=== PATIENT | male | born 1955 | race Caucasian/White ===

== ENCOUNTER 2023-08-21 09:37 | Outpatient (CLI) | payer OTHER, SELFPAY ==
[2023-08-21 10:06] VITALS: BMI 22.8
--- NOTE | 2023-08-21 10:06 | ECG_ITS ---
[facility] Test Date: 2023-08-21 Pat Name: Arcenio Justice Department: Room: Gender: Male Accuracy Expert: Kevin Puentes : 1955 Requested By: Mango Dubois Order Number: [id number] Linda MD: Barb Suarez M.D. Interpretive Statements NAME OF STUDY: LEXISCAN SESTAMIBI STRESS TEST INDICATION: Chest Pain, PROCEDURE: At the baseline, the EKG revealed normal sinus rhythm with some nonspecific IVCD.. The baseline heart was 684 bpm with a blood pressue of 137/75 mm of Hg Lexiscan was infused over a period of 20 seconds. A total of 0.4 milligrams of Lexiscan was infused. The stress phase was continued for a total of 5 minutes. Heart rate at the end of the stress phase was 102 bpm with a blood pressure 143/68 mm of Hg. The EKG at the peak infusion revealed diffuse nonspecific ST-T changes. Sestamibi was injected 20 seconds after the Lexiscan infusion. Heart rate at the end of the recovery phase was 102 bpm with a blood pressure of 149/74 mm of Hg. the EKG showed some persistent nonspecific ST changes, at 2 minutes into the recovery phase CONCLUSION: 1. Nonspecific EKG changes with the LexiScan infusion 2. No LexiScan induced chest pain or cardiac arrhythmia 3. Normal blood pressure and heart rate response 4. Sestamibi/sestamibi perfusion scan pending; see separate report. Electronically Signed On 08-23-2023 9:45:37 [employer]OTTON PICKING MACHINE OPERATOR by Barb Suarez M.D. [email or web address]
--- NOTE | 2023-08-21 10:06 | NMCV_ITS ---
NM [facility] perf SPECT r/s* [id number] Arcenio Justice Age: 68 Gender: M : 1955 Exam Date: 08/21/2023 10:06 Ordering Phys: Mango Cabrera DO Technologist: TIMA Cordero Exam Location: [facility] Indications: CHEST PAIN STRESS TEST Please see separate stress test report in [facility] for full findings IMAGE PROTOCOL Rest/Stress 1 Lexiscan Day Radiopharmaceutical Dose (mCi) Administration Site Administered by Rest: Tc-99m 10.5 IV TIMA Cordero Sestamibi Stress:Tc-99m 32.3 IV TIMA Kennedy Sestamibi Rest: 21-Aug-2023 60 Discovery 630 Stress: 21-Aug-2023 30 Discovery 630 0.4mg Lexiscan. Supine position only as patient was unable to lay prone. SPECT RESULTS Technical Quality: Excellent Raw Data Analysis: Normal Image Corrections: No attenuation or motion correction applied Summed Stress Score: 0 Summed Rest Score: 1 Summed Difference Score: 0 PERFUSION FINDINGS Fairly uniform myocardial tracer uptake. No significant perfusion abnormalities. FUNCTIONAL RESULTS (calculated via Gated SPECT) Stress Image LV EF (%): 78 Stress EDV (mL):76 TID: 0.84 Stress ESV (mL):17 FUNCTIONAL FINDINGS: Segmental wall motion analysis revealing no gross wall motion abnormalities IMPRESSIONS 1. Unremarkable Myocardial perfusion imaging 2. Normal LV ejection fraction of 78%. 3. LV wall motion analysis revealing no gross wall motion abnormalities. 4. Normal LV volume No similar previous studies are available for comparison Low probability for coronary ischemia, based on the above findings Dr Barb Suarez MD FACC (Electronically Signed) Final Date: 21 August 2023 13:37 S
[2023-08-21] MEDS: regadenoson 0.4 Mg/5 ml Syringe IVP (11:29)
[2023-08-21 11:38] VITALS: BP 149/74; PULSE 100
== END 2023-08-21 09:38 | disposition home or self-care (01) ==
PROVIDERS: PCP Surgery Vascular Surgery; Visit Provider Emergency Medicine Emergency Medical Services
DX: R07.9 Chest pain, unspecified (principal)
CPT/HCPCS: 36415; 78452; 93017; 96374; A9500; J2785

== ENCOUNTER → 2023-10-02 13:18 | Outpatient (BNVA) | payer OTHER, SELFPAY | PROVIDERS: PCP Emergency Medicine Emergency Medical Services; Referring Provider Emergency Medicine Emergency Medical Services; Visit Provider Internal Medicine Cardiovascular Disease | DX: I10 Essential (primary) hypertension (principal); R07.9 Chest pain, unspecified; Z87.891 Personal history of nicotine dependence | CPT/HCPCS: 99203 ==